=== PATIENT | male | born 1950 | race Caucasian/White ===

== ENCOUNTER 2016-07-08 07:20 | Day surgery (SDC) | payer OTHER, MEDICARE ==
[2016-07-05 17:14] VITALS: BMI 28.5
[2016-07-08] MEDS ORDERED: PROPOFOL 20 ML ONE ×2 (07:27)
[2016-07-08 09:56] VITALS: TEMP 97.8
[2016-07-08 11:14] VITALS: BP 104/60; PULSE 72
== END 2016-07-08 10:15 | disposition home or self-care (01) ==
LOC: FASU-ENDO 07:20
PROVIDERS: ATTEND Internal Medicine Gastroenterology
PROC: 0DJD8ZZ Inspection of Lower Intestinal Tract, Via Natural or Artificial Opening Endoscopic (ICD-10-PCS; principal; 2016-07-08 09:07)
DX: Z86.010 Personal history of colon polyps (principal)

== ENCOUNTER 2022-02-24 07:13 | Day surgery (SDC) | payer OTHER, MEDICARE ==
[2022-02-23 14:18] VITALS: BMI 30.9
[2022-02-24] MEDS ORDERED: PROPOFOL 120 ML ONE (07:56)
[2022-02-24] MEDS ORDERED: LIDOCAINE HCL/PF 2% SDV 5ML VIAL ONE (07:56)
[2022-02-24 09:32] VITALS: RESP 18
[2022-02-24 11:27] VITALS: BP 120/64; PULSE 69; TEMP 98
== END 2022-02-24 11:05 | disposition home or self-care (01) ==
LOC: FASU-ENDO 07:13
PROVIDERS: ATTEND Internal Medicine Gastroenterology
PROC: 0DBH8ZX Excision of Cecum, Via Natural or Artificial Opening Endoscopic, Diagnostic (ICD-10-PCS; principal; 2022-02-24 10:12)
DX: Z12.11 Encounter for screening for malignant neoplasm of colon (principal); Z80.0 Family history of malignant neoplasm of digestive organs; D12.0 Benign neoplasm of cecum
CPT/HCPCS: 87426; 88305-TC; C9803-CS; U0003; U0005